=== PATIENT | female | born 1985 | race Caucasian/White ===

== ENCOUNTER 2017-08-26 14:13 | Outpatient (CLI) | payer MEDICAID ==
[2017-08-27 06:23] LABS: TEST RESULT REPORT
[2017-08-29 19:57] LABS: TEST RESULT REPORT
== END 2017-08-26 14:14 | disposition home or self-care (01) ==
LOC: LAB 14:13
PROVIDERS: ATTEND Registered Nurse
DX: Z11.3 Encounter for screening for infections with a predominantly sexual mode of transmission (principal)
CPT/HCPCS: 36415; 81599; 86592; 86695; 86696; 86803; 87389